=== PATIENT | male | born 1935 | race Caucasian/White ===

== ENCOUNTER → 2017-08-02 11:21 | Outpatient (CLI) | payer MEDICARE, SELFPAY ==
--- NOTE | 2017-08-02 11:29 | XR_ITS ---
XR lumbar spine min 4V HISTORY: ITS.REASON: LOW BACK PAIN ORDERING PHYSICIAN: Juan Carlos Beth MD PATIENT AGE: 82 years COMPARISON: None FINDINGS: There is multilevel degenerative disc disease at L1 L2 L3 L4 4 L5 and L5-S1. There is 5 mm anterolisthesis of L3 on L4. The degenerative disc disease is worse at L4-5 and L5-S1. No fracture or dislocation. Total right hip prosthesis is present. There is mild osteosclerosis of the SI joint on the right. IMPRESSION: Degenerative disc disease of the lumbar spine worse at L4-5 and L5-S1
== END ==
PROVIDERS: PCP Family Medicine; Visit Provider Family Medicine
DX: M54.5 Low back pain (principal)
CPT/HCPCS: 72110

== ENCOUNTER → 2017-10-02 09:27 | Outpatient (CLI) | payer MEDICARE, SELFPAY ==
--- NOTE | 2017-10-02 09:29 | MR_ITS ---
MR lumbar spine wo con Ordering Physician: Juan Carlos Beth MD Patient Age: 82 years: Male HISTORY: ITS.REASON: LOW BACK PAIN Bilateral hip pain worse when walking. Left-sided low back pain symptoms one month no trauma history of back surgery 4 years ago. TECHNIQUE: Sagittal STIR, T1, T2, axial T1 and T2. On 1.5T Siemens wide bore MRI. 3-D MR myelogram image set obtained & performed on MRI workstation. Additional sagittal thin section T2 weighted dataset obtained from this latter acquisition as well (---76 CPT) COMPARISON :Previous lumbar spine plain films 08/02/2017 FINDINGS Vertebral bodies. At T12 with mild superior endplate can can be associated with a Schmorl's node. Could reflect a mild old superior endplate compression injury.There is also generous Schmorl's node inferior endplate L1 Note Postsurgical changes with Previous minimal midline laminectomy at L4,/5 and L5/S1. Conus ends appropriately at at L1/, but which is a level of prominent spinal stenosis. L5/S1. Degenerative disc space narrowing. Schmorl's node inferior aspect of L5. There is diffuse posterior ridging, diffuse spondylotic disc bulge. This indents the thecal sac & along with moderate facet hypertrophy yields moderate recess and foraminal encroachment most pronounced on the right.. Previous minimal midline laminectomy L4/5: marked degenerative disc space. Generous circumferential Disc bulge narrowing with prominent facet hypertrophy. Features combine to yield prominent recess and foraminal encroachment as well borderline spinal stenosis. Actually the patient has had a previous laminectomy at L4/5 and L5/S1 L3/4 mild 4 mm degenerative anterolisthesis L3 on 4. Exuberant facet hypertrophy with ligamentum flavum hypertrophy most evident to the right. Prominent disc bulge. Axial images suggest Additional disc protrusion left paracentral continuing to the left foramen.. Accommodation these features yield a prominent central canal stenosis and marked recess and foraminal encroachment bilaterally,, left more than right. L2/3. Degenerative disc space narrowing diffuse disc bulge most evident towards right and left foramen. Generous Facet hypertrophy. Moderate central canal stenosis. Bilateral recess and foraminal encroachment. L1/2. A disc bulge with additional bulge, disc protrusion towards right foramen. Prominent facet and ligament flavum hypertrophy. Prominent Central canal stenosis with moderate/generous bilateral recess and foraminal encroachment T12/L1. Disc intact neural foramen patent widely patent at this level. Mild facet and posterior element hypertrophy. T11/12 mild disc space narrowing with posterior element hypertrophy indenting the posterior thecal sac. Scant disc bulge. The 3-D MR myelogram image set nicely demonstrates the severe spinal stenosis most pronounced at L3/4, followed by L1/2 and L2/3. Generous dependent edema is seen in the soft tissues the lower backIs seen overlying the spinous processes from L2 through S1 IMPRESSION: --------- 1. Postsurgical changes with Previous minimal midline laminectomy at L4,/5 and L5/S1. 2.Lumbar Spondylosis with multilevel degenerative disc changes, & prominent posterior element hypertrophy- resulting in multilevel spinal stenosis at the 3 levels above the laminectomy.. Also multilevel pronounced recess/foraminal encroachment 2. Most severe spinal stenosis at L3/4. Followed by L1/2. ... L3/4 Exuberant posterior element hypertrophy along, with disc bulge & mild degenerative listhesis... These features combine to yield severe spinal stenosis, as well as Prominent recess/foraminal encroachment bilaterally.;. ...... L1/2. Prominent fairly exuberant facet hypertrophy: Disc bulge most with additional disc bulge and protrusion protrusion
== END ==
PROVIDERS: Family Provider Family Medicine; PCP Family Medicine; Visit Provider Family Medicine
DX: M54.5 Low back pain (principal)
CPT/HCPCS: 72148; 76376

== ENCOUNTER → 2021-05-14 09:31 | Outpatient (CLI) | payer MEDICARE, SELFPAY | PROVIDERS: Visit Provider Urology | DX: N40.0 Benign prostatic hyperplasia without lower urinary tract symptoms (principal); Z01.812 Encounter for preprocedural laboratory examination; Z11.52 Encounter for screening for COVID-19 | CPT/HCPCS: C9803; U0003; U0005 ==

== ENCOUNTER 2021-05-17 10:08 | Day surgery (SDC) | payer MEDICARE, SELFPAY ==
[2021-05-13 13:34] VITALS: BMI 44.3
[2021-05-17 10:25] VITALS: BP 155/77; PULSE 79; RESP 18; TEMP 36.7; O2SAT 95
[2021-05-17 11:17] VITALS: BP 147/76; PULSE 81; RESP 16; TEMP 36.3; O2SAT 92
--- NOTE | 2021-05-17 13:30 | HMH.OPNOTE ---
Date of procedure: 05/17/21 Pre-op Diagnosis:: Urinary slowing Post-op Diagnosis:: BPH with obstruction Procedure performed:: Cystoscopy Surgeon:: Jeffrey Mars MD Anesthesia: local Estimated blood loss (mL): 0 Clinical Note:: 86-year-old white male with history of slow stream and straining to void presents for cystoscopic evaluation. Operative findings:: Patient with prostatic adenoma along the anterior channel. No evidence of a median lobe. There is moderate trabeculation in the bladder. No cellules or diverticula noted. Operative note:: Patient taken to the cystoscopy suite after informed consent was obtained. On the stretcher is prepped and draped in the standard surgical fashion and 2% lidocaine placed into the urethra and the urethra clamped for 5 minutes. Clamp removed and the flexible cystoscope introduced into the urethral meatus. Passed to the prostatic urethra which showed prostatic adenoma protruding inwards on the anterior channel. Posterior channel not appear to be significantly obstructed. The bladder was entered and examined in a systematic fashion. No mucosal abnormalities were noted. There was some moderate trabeculation in the bladder base. Ureteral orifices were well away from the bladder neck and there is no evidence of a median lobe. There was clear efflux of urine from the ureteral orifices. The scope then pulled back to the prostatic urethra. Prostate was measured at about 3 cm in length. There is no evidence of urethral strictures. The scope removed patient tolerated procedure well. We discussed the findings with the patient and his son and UroLift was recommended. We will set this up at his earliest convenience. Condition: stable Disposition: same day Specimens:: None Complications:: None
== END 2021-05-17 11:29 | disposition home or self-care (01) ==
LOC: OUTP 10:10
PROVIDERS: PCP Family Medicine; Visit Provider Urology
DX: R32 Unspecified urinary incontinence (principal); R35.0 Frequency of micturition; N40.1 Benign prostatic hyperplasia with lower urinary tract symptoms; J45.909 Unspecified asthma, uncomplicated; F41.9 Anxiety disorder, unspecified; E10.9 Type 1 diabetes mellitus without complications; E78.5 Hyperlipidemia, unspecified; I10 Essential (primary) hypertension; M19.90 Unspecified osteoarthritis, unspecified site; Z79.899 Other long term (current) drug therapy; Z87.891 Personal history of nicotine dependence
CPT/HCPCS: 52000

== ENCOUNTER → 2021-06-30 06:51 | Outpatient (CLI) | payer MEDICARE, SELFPAY ==
[2021-06-30 07:00] LABS: MANUAL DIFFERENTIAL MANUAL DIFFERENTIAL (MANUAL DIFF)
[2021-06-30 07:23] LABS: Basophils # 0.1 K/mm3 (0-0.2); Basophils % 0.7 % (0.1-2.0); Eosinophils # 0.3 K/mm3 (0.0-0.4); Eosinophils % 4.4 % (0.1-12.0); Hematocrit 43.8 % (42.0-52.0); Hemoglobin 13.9 g/dL (14.1-18.0); Lymphocytes # 1.1 K/mm3 (0.7-4.5); Lymphocytes % 14.7 % (10-50); Mean Corpuscular HGB Conc 31.7 g/dL (31.8-35.4); Mean Corpuscular Hemoglobin 31.9 pg (27.0-31.2); Mean Corpuscular Volume 100.6 fl (80-94); Mean Platelet Volume 8.6 fl (7.4-10.4); Monocytes # 0.5 K/mm3 (0.1-1.0); Monocytes % 6.3 % (1.7-9.3); Neutrophils # 5.5 K/mm3 (1.8-7.8); Neutrophils % 73.9 % (37.0-80.0); Platelet Count 251 K/mm3 (142-424); Red Blood Count 4.35 M/mm3 (4.60-6.20); Red Cell Distribution Width 13.3 % (11.5-17.5); White Blood Count 7.5 K/mm3 (4.8-10.8)
[2021-06-30 07:53] LABS: Chloride 100 mmol/L (98-107); Potassium 4.6 mmoL/L (3.5-5.1); Sodium 138 mmol/L (136-145)
[2021-06-30 07:56] LABS: Anion Gap 8.6 mEq/L (5-15); Blood Urea Nitrogen 30 mg/dl (9-20); Calcium 8.5 mg/dl (8.4-10.2); Carbon Dioxide 34 mmol/L (22.0-30.0); Estimated Glomerular Filt Rate 52 ml/min (>60); GFR (African American) 63 ML/MIN (>60); Glucose 132 mg/dl (74-100)
[2021-06-30 10:29] LABS: Eosinophils % 4 % (0-3); Lymphocytes % 17 % (10-50); Monocytes % 4 % (2-9); Neutrophils % 75 % (42-76); Total Cells Counted 100
[2021-06-30 10:30] LABS: Anisocytosis 1+; Platelet Estimate Normal
== END ==
PROVIDERS: Visit Provider Urology
DX: N40.1 Benign prostatic hyperplasia with lower urinary tract symptoms (principal); Z01.812 Encounter for preprocedural laboratory examination; Z11.52 Encounter for screening for COVID-19; Z79.899 Other long term (current) drug therapy
CPT/HCPCS: 36415; 80048; 85007; 85014; 85018; 85048; 85049; C9803; U0003; U0005

== ENCOUNTER 2021-07-02 07:13 | Day surgery (SDC) | payer MEDICARE, SELFPAY ==
[2021-06-30 09:22] VITALS: BMI 46.3
[2021-07-02 07:36] VITALS: BP 106/72; PULSE 75; RESP 18; TEMP 36.6; O2SAT 94
--- NOTE | 2021-07-02 07:46 | SUR.PREOP ---
Verbal consent obtained from patient due to inability to sign consent patient has macular degeneration. Moiz WALLIS explained consent and patient agreed to all . Silvia and Bre signed consent in front of patient.
--- NOTE | 2021-07-02 08:40 | HMH.ANESCL ---
[facility] Anesthesia Checklist - Patient Identification Patient Identification: Arm Band, Verbal (Name & ) - Structural Data Admitted From: Home Planned Operative Procedure/s: Urolift Consent for Planned Operative Procedure(s) Verified: Yes Verified Documents: Surgical Consent - NPO Status Verified Time NPO: 00:00 - Chart Verification Results Verified: CBC, BMP - Additional verifications Anesthesia Reactions: No Hx Blood Transfusions: No Blood Transfusion Reaction: No - Airway Assessment C-Spine Mobility Assessed: Yes TMJ Mobility Assessed: Yes Dentition: Dentures-good fit - Neurological Assessment Level of Consciousness: Awake, Alert, Appropriate - Anesthesia Plan Anesthesia Risk discussed: Yes ASA Class: III Anesthesia Type: MAC [facility] History I have reviewed the patient's past medical history: Yes Medical History: Reports:: Asthma, BPH, Depression, Hyperlipidemia, Hypertension Denies:: Cancer, Diabetes Mellitus Type 1, Diabetes Mellitus Type 2, Internal Pacemaker, MRSA, Seizures *Have you ever received a pneumonia vaccine?: Yes *Have you received a flu vaccine this season?: Yes Other Medical History: Reports: Arthritis. Denies: Blood Transfusion Reaction Anesthesia experience/problems:: none Laterality Cases: Right: Arthroscopy Hip, Total Hip Replacement, Bilateral: Total Knee Replacement Other Surgeries: Yes: No Previous Surgery, Colonoscopy. No: Pacemaker Amputation: No Fractures: No - *Social History Last grade of school completed: High school graduate Smoking Status: Never smoker Tobacco Type: smokeless tobacco # Packs/Day (cigarettes): 1 Alcohol Intake: never Substance Use Type: denies use *Occupational Status:: retired Housing: house Household Members: family *Travel in the last 8 weeks: None - Psychiatric History Pschychiatric History:: Reports:: Depression Family Hx:: Unable to obtain
[2021-07-02 10:00] VITALS: BP 90/42; PULSE 84; RESP 18; TEMP 36.1; O2SAT 92
[2021-07-02 10:15] VITALS: BP 99/49; PULSE 79; RESP 18; TEMP 36.1; O2SAT 93
[2021-07-02 10:30] VITALS: BP 119/71; PULSE 85; RESP 18; TEMP 36.1; O2SAT 96
[2021-07-02 10:45] VITALS: BP 104/60; PULSE 80; RESP 18; TEMP 36.1; O2SAT 96
[2021-07-02 11:03] VITALS: BP 103/68; PULSE 78; RESP 18; TEMP 36.1; O2SAT 98
--- NOTE | 2021-07-02 13:34 | HMH.OPNOTE ---
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 He has failed voiding trial in the past and currently has a Weber catheter in place for the last 2 months however it has been changed out monthly. Previous cystoscopy has shown evidence of prostatic adenoma in the anterior portion of the prostatic urethra and trabeculation and cellules in the bladder consistent with bladder outlet obstruction. He presents today for urologic management. Operative findings:: Prostatic adenoma with large adenoma emanating from the left proximal portion of the prostate. UroLift was performed with very nice visual results. Operative note:: Patient taken to the operating room after informed consent was obtained. He was placed on the operating table in the supine position and monitored anesthesia care was administered. Preoperative antibiotics were given and patient then placed into the dorsal lithotomy position. He was prepped draped in the standard surgical fashion. The UroLift cystoscope with obturator was passed into the urethra and it passed to the prostatic urethra and into the bladder. The bladder was examined in a systematic fashion. There was a little bit of debris in the bladder from the indwelling Weber in the bladder was irrigated. The bladder then examined and there was again cellule formation throughout the base of the bladder and moderate trabeculation. The ureteral orifices were well away from the bladder neck and there was no evidence of median lobe. Prostatic urethra showed a large adenoma projecting into the prostatic lumen from the 3 o'clock position of the prostate. There is also generalized hyperplasia of the right side of the prostate. The UroLift implant was placed onto the scope and into the bladder and the larger prostatic adenoma was pushed laterally and brought backwards and away from the bladder neck and our first implant was fired through that adenoma and tensioned and cut with very nice result. Her second implant was placed into the right prostate about 2 cm from the bladder neck. Third implant was placed at the level of the V room on the left side of the prostate and the fourth implant was placed on the right side the prostate at the level of the be removed. We then visualized the prostatic urethra with the obturator and there was a a very nice result with the anterior tissue being compressed laterally and then open channel. No further implants were deemed necessary and the scope removed. A 20 Icelandic Weber catheter placed to dependent drainage. Patient tolerated the procedure well there was no bleeding. Condition: stable Disposition: same day Specimens:: None Complications:: None
== END 2021-07-02 11:03 | disposition home or self-care (01) ==
LOC: OR 07:15
PROVIDERS: PCP Family Medicine; Visit Provider Urology
DX: N40.1 Benign prostatic hyperplasia with lower urinary tract symptoms (principal); R39.198 Other difficulties with micturition; J45.909 Unspecified asthma, uncomplicated; E78.5 Hyperlipidemia, unspecified; I10 Essential (primary) hypertension; F32.A Depression, unspecified; M19.90 Unspecified osteoarthritis, unspecified site; E11.9 Type 2 diabetes mellitus without complications; Z88.8 Allergy status to other drugs, medicaments and biological substances; Z79.82 Long term (current) use of aspirin; Z79.899 Other long term (current) drug therapy
CPT/HCPCS: 52441; 52442 ×3; 96374; L8699

== ENCOUNTER 2022-01-30 14:32 | Emergency (ER) | payer MEDICARE, SELFPAY ==
[2022-01-30 16:35] VITALS: BP 126/86; PULSE 91; RESP 19; TEMP 36.9; O2SAT 96; BMI 43.2
--- NOTE | 2022-01-30 16:58 | EXP.UTC ---
Discharge Plan Disposition Patient Disposition: Still a Patient Prescriptions Prescriptions: No Action metoprolol succinate 50 mg tablet extended release 24 hr 50 mg PO DAILY senna 8.6 mg capsule 8.6 mg PO BID tramadol 50 mg tablet 50 mg PO DAILY albuterol sulfate [ProAir HFA] 90 mcg/actuation HFA aerosol inhaler 2 puff INHALATION Q6H PRN (Reason: breathing) aspirin 81 mg tablet,delayed release (DR/EC) 81 mg PO DAILY montelukast 10 mg tablet 10 mg PO DAILY theophylline 300 mg tablet extended release 12 hr 300 mg PO Q12H gabapentin 400 mg capsule 400 mg PO QID tamsulosin 0.4 mg capsule 0.4 mg PO DAILY furosemide 40 mg tablet 40 mg PO DAILY Referrals Follow up/Referrals: Juan Carlos Beth MD [Primary Care Provider] - See instructions Clinical Impressions Clinical Impression: Pain in right testicle Discharge ED Provider: Benny ([facility])Cathy [facility] [place] HPI General Stated complaint: Groin pain Mode of Arrival: Ambulatory Source of Information: Patient Limitations: No Limitations Time Seen by Provider: 01/30/22 17:02 Description of Symptoms (Recalled from Triage Doc. by RN): PATIENT C/O SWELLING AND SORENESS TO GROIN/TESTICLES SINCE YESTERDAY HEENT Symptoms (Recalled from RN notes): No Resp Symptoms (Recalled from RN notes): No Skin Symptoms (Recalled from RN notes): No MS Symptoms (Recalled from RN notes): No Functional Status (Recalled from RN notes): WNL History of Present Illness Provider Complaint: 86 yr old male presents for rt testicle pain and swelling since monday. pt states last night the pain was unbearable. pt states pain radiates from groin to thigh. pt states pain is worse when walking Related Data Home Medications Medication Instructions Recorded Confirmed albuterol sulfate 90 mcg/actuation 2 puff inhalation Q6H PRN breathing 05/03/21 07/20/21 aerosol inhaler (ProAir HFA) aspirin 81 mg tablet,delayed 81 mg PO DAILY blod thinner 05/03/21 07/20/21 release furosemide 40 mg tablet 40 mg PO DAILY Fluid 05/03/21 07/20/21 gabapentin 400 mg capsule 400 mg PO QID Pain 05/03/21 07/20/21 metoprolol succinate 50 mg 50 mg PO DAILY bp 05/03/21 07/20/21 tablet,extended release 24 hr montelukast 10 mg tablet 10 mg PO DAILY Breathing problems 05/03/21 07/20/21 sennosides 8.6 mg capsule (senna) 8.6 mg PO BID stomach 05/03/21 07/20/21 tamsulosin 0.4 mg capsule 0.4 mg PO DAILY prostate 05/03/21 07/20/21 theophylline 300 mg 300 mg PO Q12H Breathing problems 05/03/21 07/20/21 tablet,extended release,12 hr tramadol 50 mg tablet 50 mg PO DAILY Pain 05/03/21 07/20/21 Allergies Allergy/AdvReac Type Severity Reaction Status Date / Time acetaminophen Allergy Mild Verified 07/20/21 13:09 [From Darvocet-N] propoxyphene Allergy Mild Verified 07/20/21 13:09 [From Darvocet-N] Worker's Comp Is this a Worker's Comp case?: No PFSH PFSH Medical History , [employer]) Asthma BPH (benign prostatic hyperplasia) Hypertension Kidney stone Urinary tract infection Surgical History , [employer]) History of prostate surgery Social History , [employer]) Smoking Status: Former smoker alcohol intake: never substance use type: denies use current occupational status: retired and other Travel in the last 8 weeks: None household members: family housing: house caffeine: Yes ROS Obtained: Yes All systems reviewed & no additional complaints except as documented Constitutional Constitutional: Reports system reviewed and no additional complaints, except as documented Eyes Eyes: Reports system reviewed and no additional complaints, except as documented ENT Ears, Nose, Mouth, and Throat: Reports system reviewed and no additional complaints, except as documented Cardiovascular Cardiovascular: Report
--- NOTE | 2022-01-30 17:13 | PC.NURSE ---
PATIENT SENT TO ER PER Kamini SMILEY APRN FOR FURTHER EVALUATION. REPORT GIVEN TO Tigre SCOTT RN BY Kamini SMILEY APRN
--- NOTE | 2022-01-30 17:21 | PC.NURSE ---
ED MD AT BEDSIDE FOR EVALUATION
[2022-01-30 17:23] VITALS: BP 176/141; PULSE 106; RESP 18; O2SAT 97; BMI 36.9
--- NOTE | 2022-01-30 17:25 | US_ITS ---
PROCEDURE INFORMATION: Exam: US Scrotum Exam date and time: 01/30/2022 6:04 PM Age: 86 years old Clinical indication: Scrotum pain; Additional info: R testicular pain TECHNIQUE: Imaging protocol: Real-time ultrasound of the scrotum and contents with color Doppler and image documentation. COMPARISON: No relevant prior studies available. FINDINGS: Right testicle: Right hydrocele. No mass. No torsion. Normal vascular flow. Left testicle: Normal. No mass. No torsion. Normal vascular flow. Epididymides: Normal. Scrotum/soft tissues: Normal. IMPRESSION: 1. Right hydrocele. 2. No sonographic evidence of testicular torsion.
--- NOTE | 2022-01-30 17:26 | HMH.EDGENADL ---
Discharge Plan Disposition Patient Disposition: Still a Patient Condition: Good Prescriptions Prescriptions: New levofloxacin 500 mg tablet 500 mg PO DAILY 10 Days Qty: 10 0RF No Action metoprolol succinate 50 mg tablet extended release 24 hr 50 mg PO DAILY senna 8.6 mg capsule 8.6 mg PO BID tramadol 50 mg tablet 50 mg PO DAILY albuterol sulfate [ProAir HFA] 90 mcg/actuation HFA aerosol inhaler 2 puff INHALATION Q6H PRN (Reason: breathing) aspirin 81 mg tablet,delayed release (DR/EC) 81 mg PO DAILY montelukast 10 mg tablet 10 mg PO DAILY theophylline 300 mg tablet extended release 12 hr 300 mg PO Q12H gabapentin 400 mg capsule 400 mg PO QID tamsulosin 0.4 mg capsule 0.4 mg PO DAILY furosemide 40 mg tablet 40 mg PO DAILY Referrals Follow up/Referrals: Juan Carlos Beth MD [Primary Care Provider] - See instructions Activity Restrictions/Add. Instructions Additional Instructions/Restrictions: You were evaluated in the emergency department today and diagnosed with epididymitis. 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 Follow-up with your primary care provider over the next 48 hours for reassessment. Return to the emergency department for any new or worsening symptoms. Clinical Impressions Clinical Impression: Pain in right testicle, Acute epididymitis Instructions Patient Instructions: DI for Epididymitis Discharge ED Provider: Liliya Torres General Adult HPI General Chief complaint: Urogenital-Female Stated complaint: Groin pain Time Seen by Provider: 01/30/22 17:02 Mode of Arrival: Ambulatory Source of Information: Patient Limitations: No Limitations Description of Symptoms (Recalled from ER Triage Doc. by RN): PATIENT C/O SWELLING AND SORENESS TO GROIN/TESTICLES SINCE YESTERDAY History of Present Illness HPI narrative: This patient is an 86-year-old male with a history of hypertension and BPH presented to the emergency department for evaluation of testicular pain. He reports that he has had swelling of his testicle since Monday, and overnight it started hurting. He states that he has pain with palpation or with walking. He denies any known traumatic injuries. He states that he had physical therapy on for his leg and thought that maybe he was sore for that reason, but he was fine on Monday. He denies any fever, chills, chest pain, shortness of breath, abdominal pain, nausea, vomiting, changes bowel movements, dysuria, polyuria, hematuria, rashes, or other concerns. Related Data Home Medications Medication Instructions Recorded Confirmed albuterol sulfate 90 mcg/actuation 2 puff inhalation Q6H PRN breathing 05/03/21 07/20/21 aerosol inhaler (ProAir HFA) aspirin 81 mg tablet,delayed 81 mg PO DAILY blod thinner 05/03/21 07/20/21 release furosemide 40 mg tablet 40 mg PO DAILY Fluid 05/03/21 07/20/21 gabapentin 400 mg capsule 400 mg PO QID Pain 05/03/21 07/20/21 metoprolol succinate 50 mg 50 mg PO DAILY bp 05/03/21 07/20/21 tablet,extended release 24 hr montelukast 10 mg tablet 10 mg PO DAILY Breathing problems 05/03/21 07/20/21 sennosides 8.6 mg capsule (senna) 8.6 mg PO BID stomach 05/03/21 07/20/21 tamsulosin 0.4 mg capsule 0.4 mg PO DAILY prostate 05/03/21 07/20/21 theophylline 300 mg 300 mg PO Q12H Breathing problems 05/03/21 07/20/21 tablet,extended release,12 hr tramadol 50 mg tablet 50 mg PO DAILY Pain 05/03/21 07/20/21 Previous Rx's Medication Instructions Recorded levofloxacin 500 mg tablet 500 mg PO DAILY 10 days #10 tabs 01/30/22 Allergies Allergy/AdvReac Type Severity Reaction Status Date / Time acetaminophen Allergy Mild Verified 07/20/21 13:09 [From Darvocet-N] propoxyphene Allergy Mild Verified 07/20/21 13:09 [From Darvocet-N] [facility] Medical History A
--- NOTE | 2022-01-30 17:50 | PC.NURSE ---
PT ASSISTED TO BR FOR URINE SPECIMEN
--- NOTE | 2022-01-30 17:59 | PC.NURSE ---
US AT BEDSIDE
[2022-01-30 18:34] LABS: Microscopic, Urine URINE MICROSCOPIC (MICROSCOPIC)
[2022-01-30 18:37] LABS: Appearance,Urine SL CLOUDY (Clear); Bilirubin,Urine Negative (Negative); Blood, Urine Negative (Negative); Color,Urine YELLOW (Yellow); Glucose,Urine (UA) Negative (Negative); Ketones,Urine Negative (Negative); Leukocyte Esterase,Urine 1+ (Negative); Nitrate,Urine POSITIVE (Negative); Protein,Urine Negative (Negative); Specific Gravity, Urine 1.015 (1.005-1.030)
[2022-01-30 18:48] LABS: Bacteria,Urine 1+ /lpf; Squamous Epithelial Cell,Urine Occasional #/hpf (0-5)
[2022-01-30 19:03] LABS: Basophils # 0.1 K/mm3 (0-0.2); Basophils % 0.7 % (0.1-2.0); Eosinophils # 0.2 K/mm3 (0.0-0.4); Eosinophils % 1.1 % (0.1-12.0); Hematocrit 46.4 % (42.0-52.0); Hemoglobin 14.5 g/dL (14.1-18.0); Lymphocytes % 6.8 % (10-50); Mean Corpuscular HGB Conc 31.3 g/dL (31.8-35.4); Mean Corpuscular Hemoglobin 31.1 pg (27.0-31.2); Mean Corpuscular Volume 99.3 fl (80-94); Monocytes # 0.9 K/mm3 (0.1-1.0); Monocytes % 6.5 % (1.7-9.3); Neutrophils # 11.9 K/mm3 (1.8-7.8); Neutrophils % 84.9 % (37.0-80.0); Platelet Count 255 K/mm3 (142-424); Red Blood Count 4.67 M/mm3 (4.60-6.20); Red Cell Distribution Width 13.1 % (11.5-17.5)
[2022-01-30 19:09] LABS: Chloride 96 mmol/L (98-107); Potassium 4.1 mmoL/L (3.5-5.1); Sodium 139 mmol/L (136-145)
[2022-01-30 19:12] LABS: Alanine Aminotransferase 14 U/L (12-78); Albumin/Globulin Ratio 1.3 (1.1-1.8); Alkaline Phosphatase 150 U/L (38-126); Anion Gap 13.1 mEq/L (5-15); Aspartate Amino Transferase 22 U/L (17-59); Blood Urea Nitrogen 16 mg/dl (9-20); Calcium 9.9 mg/dl (8.4-10.2); Carbon Dioxide 34 mmol/L (22.0-30.0); Creatinine Clearance Estimated 77 mL/min (50-200); Estimated Glomerular Filt Rate 63 ml/min (>60); GFR (African American) 77 ML/MIN (>60); Glucose 140 mg/dl (74-100)
[2022-01-30 19:29] VITALS: BP 159/78; PULSE 105; RESP 18; TEMP 36.8; O2SAT 95
== END 2022-01-30 19:30 | disposition still patient (30) ==
LOC: UTC 17:06 → ER 17:08
PROVIDERS: Emergency Provider Emergency Medicine; PCP Family Medicine
DX: N45.1 Epididymitis (principal)
CPT/HCPCS: 36415; 76870; 80053; 81001; 85025; 87086; 87088; 87186; 99284

== ENCOUNTER 2023-03-17 12:59 | Emergency (ER) | payer MEDICARE, SELFPAY ==
[2023-03-17 13:01] VITALS: BP 137/71; PULSE 60; RESP 18; TEMP 36.4; O2SAT 97; BMI 37.4
--- NOTE | 2023-03-17 13:10 | PC.NURSE ---
Family at BS, call light within reach
--- NOTE | 2023-03-17 13:15 | HMH.EDGENADL ---
Discharge Plan Disposition Patient Disposition: Home, Self-Care Condition: Good Prescriptions Prescriptions: New ondansetron 4 mg tablet,disintegrating 4 mg PO Q8H PRN (Reason: nausea and vomiting) 5 Days Qty: 10 0RF Discontinued levofloxacin 500 mg tablet 500 mg PO DAILY 10 Days Qty: 10 0RF No Action metoprolol succinate 50 mg tablet extended release 24 hr 50 mg PO DAILY senna 8.6 mg capsule 8.6 mg PO BID tramadol 50 mg tablet 50 mg PO DAILY albuterol sulfate [ProAir HFA] 90 mcg/actuation HFA aerosol inhaler 2 puff INHALATION Q6H PRN (Reason: breathing) aspirin 81 mg tablet,delayed release (DR/EC) 81 mg PO DAILY montelukast 10 mg tablet 10 mg PO DAILY theophylline 300 mg tablet extended release 12 hr 300 mg PO Q12H gabapentin 400 mg capsule 400 mg PO QID tamsulosin 0.4 mg capsule 0.4 mg PO DAILY furosemide 40 mg tablet 40 mg PO DAILY Referrals Follow up/Referrals: Juan Carlos Beth MD [Primary Care Provider] - See instructions Activity Restrictions/Add. Instructions Additional Instructions/Restrictions: Please return to the emergency department if you experience any new or worsening symptoms. Clinical Impressions Clinical Impression: COVID Discharge ED Provider: Robbin Gray General Adult HPI General Chief complaint: Nausea/Vomiting/Diarrhea Stated complaint: abdm pain Time Seen by Provider: 03/17/23 13:09 History of Present Illness HPI narrative: Patient presents for evaluation of isolated nausea, he denies any abdominal pain. [facility] Denies any chest pain, denies any exacerbating or alleviating factors. Denies any dysuria. Of note did have 2 falls recently resulting in head injury without loss of consciousness. No nausea or vomiting or confusion. He was not evaluated at that time. Denies any neck pain. Denies any weakness or numbness. Denies any fevers or chills. Has not had similar symptoms before. Denies any shortness of breath. He states he is not had significant difficulty tolerating p.o. liquids, mildly decreased p.o. solid intake. Related Data Home Medications Medication Instructions Recorded Confirmed albuterol sulfate 90 mcg/actuation 2 puff inhalation Q6H PRN breathing 05/03/21 07/20/21 aerosol inhaler (ProAir HFA) aspirin 81 mg tablet,delayed 81 mg PO DAILY blod thinner 05/03/21 07/20/21 release furosemide 40 mg tablet 40 mg PO DAILY Fluid 05/03/21 03/17/23 gabapentin 400 mg capsule 400 mg PO QID Pain 05/03/21 03/17/23 metoprolol succinate 50 mg 50 mg PO DAILY bp 05/03/21 07/20/21 tablet,extended release 24 hr montelukast 10 mg tablet 10 mg PO DAILY Breathing problems 05/03/21 07/20/21 sennosides 8.6 mg capsule (senna) 8.6 mg PO BID stomach 05/03/21 07/20/21 tamsulosin 0.4 mg capsule 0.4 mg PO DAILY prostate 05/03/21 03/17/23 theophylline 300 mg 300 mg PO Q12H Breathing problems 05/03/21 03/17/23 tablet,extended release,12 hr tramadol 50 mg tablet 50 mg PO DAILY Pain 05/03/21 07/20/21 Previous Rx's Medication Instructions Recorded ondansetron 4 mg disintegrating 4 mg PO Q8H PRN nausea and 03/17/23 tablet vomiting 5 days #10 tabs Allergies Allergy/AdvReac Type Severity Reaction Status Date / Time acetaminophen Allergy Mild Verified 07/20/21 13:09 [From Darvocet-N] propoxyphene Allergy Mild Verified 07/20/21 13:09 [From Darvocet-N] [facility] Disclaimer: The information contained in this section may have been updated after the patient was seen, as this information can be updated by other users. Medical History Asthma BPH (benign prostatic hyperplasia) Hypertension Kidney stone Urinary tract infection Surgical History History of prostate surgery Social History Smoking Status: Never smoker alcohol intake: never substance use type: denies use current occupational status: retired and other Travel in the last 8 weeks: None household members: family housing: house caffeine: Yes ROS Obtained: Yes Systems reviewed as appropriate & no additional complaints except as documented As per HPI Physical Exam General General appearance: alert and in no apparent distress Head Head exam: normocephalic and other (Right-sided periorbital ecchymosis, extraocular movements intact, no cervical spinal tenderness to palpation, no appreciable injury elsewhere) Eye Eye exam: Present normal appearance Neck Neck exam: Present normal inspection Chest Chest inspection: Present normal inspection and symmetric chest wall rise Respiratory Respiratory exam: Present normal lung sounds bilaterally; Absent respiratory distress Cardiovascular Cardiovascular exam: Present regular rate and normal rhythm Abdominal Exam Abdominal exam: Present soft Neurological Exam Neurological exam: Present alert and oriented X3 Psychiatric Psychiatric exam: Present normal affect and normal mood Skin Skin exam: Present warm and dry Medical Decision Making Medical Records Medical records reviewed: Yes I reviewed the patient's medical records. [place] Inquiry Pt receiving controlled substance: No Vital Signs: 03/17/23 13:01 03/17/23 13:31 03/17/23 14:01 Temperature 97.6 F Temperature Source Oral Pulse Rate 89 88 Pulse Rate [Right] 60 Respiratory Rate 18 Blood Pressure 140/73 97/80 L Blood Pressure [Right Arm] 137/71 Blood Pressure Mean 95 85 Blood Pressure Mean [Right Arm] 93 Blood Pressure Source Blood Pressure Source [Right Arm] Automatic Cuff Blood Pressure Position 02 Sat by Pulse Oximetry 97 97 97 Oxygen Delivery Method Room Air Room Air Room Air 03/17/23 16:05 03/17/23 16:24 03/17/23 16:27 Temperature 97.9 F 98.0 F Temperature Source Oral Pulse Rate 101 H 88 103 H Pulse Rate [Right] Respiratory Rate 18 15 Blood Pressure 133/104 H 133/104 H 133/104 H Blood Pressure [Right Arm] Blood Pressure Mean 113 Blood Pressure Mean [Right Arm] Blood Pressure Source Automatic Cuff Blood Pressure Source [Right Arm] Blood Pressure Position Sitting 02 Sat by Pulse Oximetry 95 Oxygen Delivery Method Room Air Room Air Room Air Lab Data Lab Results 03/17/23 13:35: WBC 7.1, RBC 4.68, Hgb 14.5, Hct 44.2, MCV 94.5 H, MCH 31.0, MCHC 32.8, RDW 13.2, Plt Count 248, MPV 9.3, Neut % (Auto) 72.0, Lymph % (Auto) 19.0, [place] % (Auto) 6.9, Eos % (Auto) 1.6, Baso % (Auto) 0.5, Neut # (Auto) 5.1, Lymph # (Auto) 1.4, [place] # (Auto) 0.5, Eos # (Auto) 0.1, Baso # (Auto) 0.0, Sodium 135 L, Potassium 3.9, Chloride 95 L, Carbon Dioxide 35 H, Anion Gap 8.9, BUN 17, Creatinine 1.10, Estimated Creat Clear 75, Estimated GFR 63, Est GFR ( Amer) 77, Glucose 113 H, Calcium 9.0, Total Bilirubin 1.1, AST 36, ALT 23, Alkaline Phosphatase 199 H, Total Protein 7.1, Albumin 3.8, Globulin 3.3 H, Albumin/Globulin Ratio 1.2, SARS-CoV-2 (PCR) Detected A, Influenza A Untype (PCR) Not detected, Influenza Type B (PCR) Not detected 03/17/23 14:10: Urine Color Yellow, Urine Appearance Clear, Urine pH 7.5, Ur Specific [place] 1.010, Urine Protein Negative, Urine Glucose (UA) Negative, Urine Ketones Negative, Urine Blood Negative, Urine Nitrate Negative, Urine Bilirubin Negative, Urine Urobilinogen 1.0, Ur Leukocyte Esterase Trace, Urine RBC None, Urine WBC Occasional, Ur Squamous Epith Cells 3-5, Urine Bacteria Trace 03/17/23 13:35 03/17/23 13:35 Orders (Tests/Meds): ORDERS Category Date Time Status CT head/brain wo con Stat Cat Scan 03/17/23 13:29 Completed XR chest 2V Stat Exams 03/17/23 13:29 Completed CBC w/Auto Diff [Complete Blood Count Auto Diff] Stat Lab 03/17/23 13:35 Completed CMP [Comprehensive Metabolic Panel] Stat Lab 03/17/23 13:35 Completed Rapid PCR Covid and Flu A/B Stat Lab 03/17/23 13:35 Completed Urinalysis and Microscopic Stat Lab 03/17/23 14:10 Completed Medical Decision Narrative: Patient with history and exam per above presenting for evaluation of nausea, malaise, head injury Diagnoses considered include intracranial hemorrhage, electrolyte abnormality, pneumonia, cystitis, pyelonephritis, viral illness ED workup and treatment included: ORDERS Category Date Time Status CT head/brain wo con Stat Cat Scan 03/17/23 13:29 Completed XR chest 2V Stat Exams 03/17/23 13:29 Completed CBC w/Auto Diff [Complete Blood Count Auto Diff] Stat Lab 03/17/23 13:35 Completed CMP [Comprehensive Metabolic Panel] Stat Lab 03/17/23 13:35 Completed Rapid PCR Covid and Flu A/B Stat Lab 03/17/23 13:35 Completed Urinalysis and Microscopic Stat Lab 03/17/23 14:10 Completed Labs were independently interpreted by me, significant for COVID-19 detected, no other acute findings Imaging was independently visualized and interpreted by me, significant for no acute findings Symptoms at this time are thought to be most consistent with COVID-19 I discussed my clinical impression with patient and answered all questions. At this time, given reassuring workup and exam, I discussed that I have a low index of suspicion for any acute pathology necessitating inpatient management. Specific return precautions were given, with understanding and agreement. Patient will follow up with primary care provider as needed. Please see discharge section of note for any medication adjustments or new prescriptions. Critical Care Critical Care Time Critical Care Time: No
--- NOTE | 2023-03-17 13:29 | CT_ITS ---
FINAL REPORT TECHNIQUE: multiple axial CT images were performed from the foramen magnum to the vertex without enhancement. CLINICAL HISTORY: head injury, nausea, vomiting FINDINGS: The ventricles are enlarged. There is diffuse atrophy. There is periventricular white matter change likely related to small vessel disease. There is no evidence of hemorrhage. No masses are identified. No extra-axial fluid is seen. There is mild to moderate mucoperiosteal thickening in the maxillary sinuses. IMPRESSION: Atrophy and chronic changes without acute process. Liver chronic maxillary sinusitis. Reviewed, Interpreted and Dictated by Jaylan Menendez MD Transcribed by Stella Melissa Authenticated and [facility]
--- NOTE | 2023-03-17 13:29 | XR_ITS ---
FINAL REPORT CLINICAL HISTORY: nausea, vomiting, covid exposure FINDINGS: TWO-VIEW CHEST The heart size is normal. The mediastinum is normal. The lungs are clear. There is no pneumothorax. IMPRESSION: No acute cardiopulmonary process. Reviewed, Interpreted and Dictated by Jaylan Menendez MD Transcribed by Stella Melissa Authenticated and [facility]
[2023-03-17 13:31] VITALS: BP 140/73; PULSE 89; O2SAT 97
[2023-03-17 13:46] LABS: Influenza A, PCR Not Detected (NotDetected); Influenza B, PCR Not Detected (NotDetected)
[2023-03-17 14:01] VITALS: BP 97/80; PULSE 88; O2SAT 97
[2023-03-17 14:01] LABS: Chloride 95 mmol/L (98-107); Potassium 3.9 mmoL/L (3.5-5.1); Sodium 135 mmol/L (136-145)
[2023-03-17 14:04] LABS: Alanine Aminotransferase 23 U/L (12-78); Albumin Level 3.8 g/dl (3.5-5.0); Albumin/Globulin Ratio 1.2 (1.1-1.8); Alkaline Phosphatase 199 U/L (38-126); Anion Gap 8.9 mEq/L (5-15); Aspartate Amino Transferase 36 U/L (17-59); Bilirubin,Total 1.1 mg/dl (0.2-1.3); Blood Urea Nitrogen 17 mg/dl (9-20); Carbon Dioxide 35 mmol/L (22.0-30.0); Creatinine Clearance Estimated 75 mL/min (50-200); Estimated Glomerular Filt Rate 63 ml/min (>60); GFR (African American) 77 ML/MIN (>60); Globulin 3.3 g/dL (1.3-3.2); Glucose 113 mg/dl (74-100); Total Protein,Serum 7.1 g/dl (6.3-8.2)
[2023-03-17 14:20] LABS: Microscopic, Urine URINE MICROSCOPIC (MICROSCOPIC)
[2023-03-17 14:21] LABS: Basophils % 0.5 % (0.1-2.0); Eosinophils # 0.1 K/mm3 (0.0-0.4); Eosinophils % 1.6 % (0.1-12.0); Hematocrit 44.2 % (42.0-52.0); Hemoglobin 14.5 g/dL (14.1-18.0); Lymphocytes # 1.4 K/mm3 (0.7-4.5); Mean Corpuscular HGB Conc 32.8 g/dL (31.8-35.4); Mean Corpuscular Volume 94.5 fl (80-94); Mean Platelet Volume 9.3 fl (7.4-10.4); Monocytes # 0.5 K/mm3 (0.1-1.0); Monocytes % 6.9 % (1.7-9.3); Neutrophils # 5.1 K/mm3 (1.8-7.8); Platelet Count 248 K/mm3 (142-424); Red Blood Count 4.68 M/mm3 (4.60-6.20); Red Cell Distribution Width 13.2 % (11.5-17.5); White Blood Count 7.1 K/mm3 (4.8-10.8)
[2023-03-17 14:21] LABS: Appearance,Urine CLEAR (Clear); Bilirubin,Urine Negative (Negative); Blood, Urine Negative (Negative); Color,Urine YELLOW (Yellow); Glucose,Urine (UA) Negative (Negative); Ketones,Urine Negative (Negative); Leukocyte Esterase,Urine TRACE (Negative); Nitrate,Urine Negative (Negative); PH,Urine 7.5 (5.0-8.5); Protein,Urine Negative (Negative)
[2023-03-17 14:37] LABS: Coronavirus 19, PCR Detected (NotDetected)
--- NOTE | 2023-03-17 14:57 | PC.NURSE ---
PT TO CT AT THIS TIME
[2023-03-17 15:43] LABS: Bacteria,Urine Trace /lpf; WBC,Urine Occasional #/hpf (0-3)
[2023-03-17 16:05] VITALS: BP 133/104; PULSE 101; O2SAT 95
[2023-03-17 16:24] VITALS: BP 133/104; PULSE 88; RESP 18; TEMP 36.6; O2SAT 97
[2023-03-17 16:27] VITALS: BP 133/104; PULSE 103; RESP 15; TEMP 36.7; O2SAT 96
== END 2023-03-17 16:27 | disposition home or self-care (01) ==
PROVIDERS: Emergency Provider Emergency Medicine; PCP Family Medicine
DX: U07.1 COVID-19 (principal); R11.0 Nausea; J45.909 Unspecified asthma, uncomplicated; I10 Essential (primary) hypertension
CPT/HCPCS: 70450; 71046; 80053; 81001; 85025; 87636; 99285

== ENCOUNTER 2023-04-03 08:38 | Outpatient (CLI) | payer MEDICARE, SELFPAY ==
--- NOTE | 2023-04-03 08:41 | US_ITS ---
FINAL REPORT CLINICAL HISTORY: GALLBLADDER COMPARISON: None FINDINGS: Sonographic images of the right upper quadrant were obtained. The pancreas is obscured.The liver has an unremarkable appearance. Gallstones are present in the gallbladder, along with probable polyps. There is either small pericholecystic fluid collection or thickening of the wall of the gallbladder, favor slight wall thickening. There is no evidence of biliary ductal dilatation.The common duct measures 5 mm. Limited images of the right kidney are unremarkable. IMPRESSION: Sludge and stones present in the gallbladder, likely small polyps as well. Likely wall thickening rather than pericholecystic fluid in the gallbladder, and acute cholecystitis cannot be excluded. Reviewed, Interpreted and Dictated by Manav Dixon III, MD Transcribed by Antonella Sanchez Authenticated and [facility]
== END 2023-04-03 23:59 ==
LOC: RAD 08:38
PROVIDERS: PCP Family Medicine; Visit Provider Family Medicine
DX: K82.8 Other specified diseases of gallbladder (principal)
CPT/HCPCS: 76705

== ENCOUNTER 2023-04-10 08:53 | Outpatient (CLI) | payer MEDICARE, SELFPAY ==
--- NOTE | 2023-04-10 08:57 | FL_ITS ---
FINAL REPORT CLINICAL HISTORY: Chronic nausea, DAP: 4726.74 FT: 4:21 FINDINGS: UPPER GI SERIES AND SMALL BOWEL FOLLOW THROUGH HISTORY: Nausea and vomiting. PROCEDURE: Patient ingested thick and thin barium contrast. Additional contrast was administered for small bowel follow through. Spot and overhead films were performed. FINDINGS: UGI: There is severe esophageal dysmotility with tertiary contractions. There is narrowing of the distal esophagus. 13 mm Barium tablet does not pass beyond this area of narrowing during the exam. The stomach is of normal size, shape and position. No gastric filling defects are seen. The duodenal bulb and sweep appear unremarkable. No episodes of gastroesophageal reflux observed. SBFT: The grader meat film is unremarkable . Contrast reaches the colon at 2 hours, 45 minutes. The mucosal fold pattern is normal . Spot images of the terminal ileum are unremarkable . Radiation exposure in DAP: 4726.74 [id number] Fluoroscopy time: 4 minutes, 21 seconds Total images: 37 IMPRESSION: Severe esophageal dysmotility. Narrowing of the distal esophagus with 13 mm barium tablet not passing beyond this during the exam. Recommend correlation with upper endoscopy. Otherwise, unremarkable UGI and small bowel follow through. Reviewed, Interpreted and Dictated by Jaylan Menendez MD Transcribed by Daina Morales PA-C Authenticated and [facility]
[2023-04-10] MEDS: BARIUM SULFATE(LIQUID E-Z-PAQUE);355ML BOTTLE 355 ML PO (12:41)
[2023-04-10] MEDS: E-Z-GASII EFFERVESCENT GRANULES;1PK 1 EACH PO (12:42)
[2023-04-10] MEDS: BARIUM SULFATE (E-Z-HD 340GM);135ML BOTTLE 135 ML PO (12:42)
== END 2023-04-10 23:59 ==
LOC: RAD 08:53
PROVIDERS: PCP Family Medicine; Visit Provider Family Medicine
DX: R11.0 Nausea (principal)
CPT/HCPCS: 74246; 74248

== ENCOUNTER 2023-09-19 09:54 | Outpatient (CLI) | payer MEDICARE, SELFPAY ==
--- NOTE | 2023-09-19 10:03 | XR_ITS ---
FINAL REPORT CLINICAL HISTORY: CONGESTION FINDINGS: TWO-VIEW CHEST The heart size is normal. The mediastinum is normal. There are right lung base opacities, may represent atelectasis or pneumonia. There is no pneumothorax. IMPRESSION: Right lung base atelectasis versus pneumonia. Reviewed, Interpreted and Dictated by Manav Dixon III, MD Transcribed by Stella Melissa Authenticated and [facility]
== END 2023-09-19 23:59 | disposition home or self-care (01) ==
PROVIDERS: PCP Family Medicine; Visit Provider Family Medicine
DX: J98.8 Other specified respiratory disorders (principal)
CPT/HCPCS: 71046